=== PATIENT | male | born 1995 | race Caucasian/White ===

== ENCOUNTER 2024-05-10 08:27 | Inpatient (IN) | payer MEDICAID ==
[~2024-05-10] VITALS: Ht 172.7 cm; Wt 64.7 kg
[2024-05-10 08:55] LABS: COVID AG,FIA SOURCE NASAL SWAB
[2024-05-10 09:02] LABS: BASOPHILS % (AUTO) 0.3 % (0.0-2.0); EOSINOPHILS % (AUTO) 7.2 % (1.0-6.0); HEMATOCRIT 42.1 % (41-53); HEMOGLOBIN 13.9 g/dL (13.5-17.5); LYMPHOCYTES # (AUTO) 0.7 K/uL (1.0-4.8); LYMPHOCYTES % (AUTO) 14.4 % (22.0-44.0); MEAN CORPUSCULAR HGB CONC 32.9 G/dL (31.0-37.0); MEAN CORPUSCULAR VOLUME 91 fL (80-100); MONOCYTES # (AUTO) 0.3 K/uL (0.1-1.0); MONOCYTES % (AUTO) 6.3 % (2.0-9.0); NEUTROPHILS # (AUTO) 3.5 K/uL (1.8-7.7); NEUTROPHILS % (AUTO) 71.8 % (40.0-70.0); PLATELET COUNT (AUTO) 297 K/uL (150-450); RED BLOOD CELL COUNT(AUTO) 4.62 MIL/uL (4.50-5.90); RED CELL DISTRIBUTION WIDTH 13.6 % (11.5-14.5); WHITE BLOOD COUNT (AUTO) 4.8 K/uL (4.5-11.0)
[2024-05-10 09:03] LABS: CHLORIDE 106 mmol/L (98-107); CREATININE 0.92 mg/dL (0.60-1.30); GLOMERULAR FILTR. RATE CALC > 60 mL/min (>60); POTASSIUM 3.8 mmol/L (3.5-5.1); SODIUM SERUM 142 mmol/L (136-145)
[2024-05-10 09:10] LABS: ANION GAP 5 mmol/L (8-16); CARBON DIOXIDE 31 mmol/L (22-29); GLUCOSE,RANDOM 87 mg/dL (70-110); UREA NITROGEN, BLOOD 10 mg/dL (7-18)
[2024-05-10] MEDS: HALOPERIDOL 5 MG TABLET PO ONE (09:12)
[2024-05-10] MEDS: DiphenhydrAMINE HCL 25 MG CAPSULE PO ONE (09:12)
[2024-05-10 09:23] LABS: ALCOHOL, BLOOD (SERUM) < 3 mg/dL (0-10)
[2024-05-10 10:13] LABS: SARS-COV2 (COVID) ANTIGEN,FIA Negative (Negative)
[2024-05-10] MEDS ORDERED: ZOLPIDEM TARTRATE 10 MG TABLET PO PRN (10:30)
[2024-05-10] MEDS ORDERED: HALOPERIDOL 5 MG TABLET PO PRN (10:30)
[2024-05-10] MEDS: INFLUENZA VIRUS VACCINE TVS (6MO+) 2024-25/PF 45 MCG/0.5 ML SYRINGE IM. ONE (13:15)
[2024-05-10 13:17] VITALS: BP 111/73; PULSE 77; RESP 17; TEMP 97.8; O2SAT 98
[2024-05-10] MEDS ORDERED: ACETAMINOPHEN 325 MG TABLET PO PRN (20:00)
[2024-05-10] MEDS ORDERED: ONDANSETRON 4 MG TABLET PO PRN (20:00)
[2024-05-10] MEDS ORDERED: LOPERAMIDE HCL 2 MG CAPSULE PO PRN (20:00)
[2024-05-10] MEDS ORDERED: ALBUTEROL SULFATE HFA 90 MCG/PUFF 8 GM INHALER IH PRN (20:00)
[2024-05-10] MEDS ORDERED: DOCUSATE SODIUM 100 MG CAPSULE PO PRN (20:00)
[2024-05-10] MEDS ORDERED: OMEPRAZOLE 20 MG CAPSULE PO PRN (20:00)
[2024-05-10] MEDS ORDERED: IBUPROFEN 600 MG TABLET PO PRN (20:00)
[2024-05-10] MEDS ORDERED: BACITRACIN 28 GM OINTMENT TP PRN (20:00)
[2024-05-10] MEDS ORDERED: BENZOCAINE/MENTHOL [CEPACOL] LOZENGE PO PRN (20:00)
[2024-05-10] MEDS ORDERED: MAG HYDROX/ALUMINUM HYD/SIMETH ES 30 ML SUSPENSION UDCUP PO PRN (20:00)
[2024-05-10] MEDS ORDERED: CloNIDine HCL 0.1 MG TABLET PO PRN (20:00)
[2024-05-10] MEDS ORDERED: MAGNESIUM HYDROXIDE SUSPENSION 30 ML UDCUP PO PRN (20:00)
[2024-05-10] MEDS ORDERED: PETROLATUM,WHITE 28 GM JELLY TP PRN (20:00)
[2024-05-10] MEDS: TraZODone HCL 100 MG TABLET PO SCH (21:00)
[2024-05-10] MEDS: HALOPERIDOL 10 MG TABLET PO SCH (21:00)
[2024-05-10 22:10] VITALS: BP 99/63; RESP 17; TEMP 98; O2SAT 97
[2024-05-11 08:21] VITALS: BP 112/68; PULSE 85; RESP 17; O2SAT 99
[2024-05-11] MEDS: LORazepam 2 MG TABLET PO PRN (16:37)
[2024-05-11 21:21] VITALS: BP 94/64; PULSE 79; RESP 17; TEMP 97.1; O2SAT 97
[2024-05-12 10:26] VITALS: BP 97/62; PULSE 74; RESP 18; TEMP 97.9; O2SAT 98
[2024-05-12 21:09] VITALS: RESP 18; TEMP 97.6
[2024-05-13] MEDS: NICOTINE POLACRILEX 2 MG LOZENGE PO PRN (16:26)
[2024-05-13 22:25] VITALS: BP 138/92; PULSE 60; RESP 18; TEMP 97.5; O2SAT 97
[2024-05-14 22:52] VITALS: RESP 17
[2024-05-15 09:55] VITALS: RESP 18
[2024-05-15 21:29] VITALS: BP 122/74; PULSE 78; RESP 18; TEMP 98.7; O2SAT 99
[2024-05-16] MEDS ORDERED: HALO10TA21 PO (11:05)
[2024-05-16] MEDS ORDERED: TRAZ-257 PO (11:05)
== END 2024-05-16 14:10 | disposition home or self-care (01) | DRG 750 ==
LOC: EMS 08:28 → 3EI 12:24
PROVIDERS: ADMIT Psychiatry & Neurology Psychiatry; ATTEND Psychiatry & Neurology Psychiatry
DX: F20.9 Schizophrenia, unspecified (principal); R45.851 Suicidal ideations; F33.2 Major depressive disorder, recurrent severe without psychotic features; F19.10 Other psychoactive substance abuse, uncomplicated; Z20.822 Contact with and (suspected) exposure to COVID-19; F41.9 Anxiety disorder, unspecified; K59.00 Constipation, unspecified; G47.00 Insomnia, unspecified; Z87.891 Personal history of nicotine dependence
CPT/HCPCS: 80048; 85025; 99285; G0480

== ENCOUNTER 2024-12-10 08:21 | Inpatient (IN) | payer MEDICAID ==
[~2024-12-10] VITALS: Ht 180.3 cm; Wt 84.4 kg
[~2024-12-10 08:21] MED LIST: BENZ-247 PO; HALO10TA21 PO; TRAZ-257 PO
[2024-12-11 13:00] VITALS: BP 116/73; PULSE 89; RESP 18; TEMP 97.9; O2SAT 99
[2024-12-11] MEDS: BENZTROPINE MESYLATE 1 MG TABLET PO SCH (18:55)
[2024-12-11 20:18] VITALS: BP 118/70; PULSE 82; RESP 17; TEMP 98.3; O2SAT 98
[2024-12-12] MEDS ORDERED: ONDANSETRON 4 MG TABLET PO PRN (16:45)
[2024-12-12] MEDS ORDERED: GuaiFENesin/D-METHORPHAN [SUGAR-FREE] 200-20MG/10 ML SYRUP UDCUP PO PRN (16:45)
[2024-12-12] MEDS ORDERED: MAG HYDROX/ALUMINUM HYD/SIMETH ES 30 ML SUSPENSION UDCUP PO PRN (16:45)
[2024-12-12] MEDS ORDERED: MAGNESIUM HYDROXIDE SUSPENSION 30 ML UDCUP PO PRN (16:45)
[2024-12-12] MEDS ORDERED: LOPERAMIDE HCL 2 MG CAPSULE PO PRN (16:45)
[2024-12-12] MEDS ORDERED: ALBUTEROL SULFATE HFA 90 MCG/PUFF 8 GM INHALER IH PRN (16:45)
[2024-12-12] MEDS ORDERED: PETROLATUM,WHITE 28 GM JELLY TP PRN (16:45)
[2024-12-12] MEDS ORDERED: DOCUSATE SODIUM 100 MG CAPSULE PO PRN (16:45)
[2024-12-12] MEDS: NICOTINE 14 MG/24 HOUR PATCH TD PRN (18:33)
[2024-12-12 20:28] VITALS: BP 115/75; PULSE 80; RESP 17; TEMP 98; O2SAT 97
[2024-12-13 08:15] VITALS: RESP 18
[2024-12-13 09:37] LABS: APPEARANCE,URINE CLEAR (CLEAR); GLUCOSE, URINE (UA) NEGATIVE (NEGATIVE); LEUKOCYTE ESTERASE ,URINE NEGATIVE (NEGATIVE); NITRATE,URINE NEGATIVE (NEGATIVE); OCCULT BLOOD,URINE NEGATIVE (NEGATIVE); PH,URINE DRUG SCREEN 6.5 (5.0-8.0); SPECIFIC GRAVITIY, URINE 1.009 (1.003-1.030)
[2024-12-13 09:57] LABS: ALCOHOL, URINE DRUG SCREEN NEGATIVE (NEGATIVE); AMPHET/METH SCREEN,URINE NEGATIVE (NEGATIVE); BARBITURATE SCREEN, URINE NEGATIVE (NEGATIVE); CANNABINOID SCREEN,URINE NEGATIVE (NEGATIVE); COCAINE SCREEN,URINE NEGATIVE (NEGATIVE); METHADONE SCREEN, URINE NEGATIVE (NEGATIVE)
[2024-12-13 20:14] VITALS: BP 105/62; PULSE 78; RESP 17; TEMP 98.1; O2SAT 98
[2024-12-14 20:34] VITALS: RESP 18
[2024-12-14] MEDS: ACETAMINOPHEN 325 MG TABLET PO PRN (20:34)
[2024-12-14 21:34] VITALS: RESP 18
[2024-12-15 08:02] VITALS: BP 102/63; PULSE 70; RESP 18; TEMP 98.1
[2024-12-15 20:24] VITALS: BP 119/81; PULSE 90; RESP 18; TEMP 98; O2SAT 97
[2024-12-16 17:44] VITALS: RESP 18; O2SAT 97
[2024-12-16 18:44] VITALS: RESP 17; O2SAT 97
[2024-12-16 21:11] VITALS: BP 116/70; PULSE 90; RESP 18; TEMP 98.2; O2SAT 98
[2024-12-16 21:20] VITALS: RESP 18
[2024-12-16] MEDS: IBUPROFEN 400 MG TABLET PO PRN (21:23)
[2024-12-16 22:23] VITALS: RESP 18
[2024-12-17 20:14] VITALS: BP 127/83; PULSE 82; RESP 18; TEMP 97.7; O2SAT 98
[2024-12-18 20:12] VITALS: BP 126/77; PULSE 82; RESP 17; TEMP 98; O2SAT 98
[2024-12-18] MEDS: ZOLPIDEM TARTRATE 10 MG TABLET PO PRN (20:43)
[2024-12-19 08:55] VITALS: RESP 16
[2024-12-19 20:12] VITALS: BP 125/62; PULSE 87; RESP 17; TEMP 98.6; O2SAT 99
[2024-12-20 14:26] VITALS: BP 113/72; PULSE 139; RESP 18; TEMP 101.1; O2SAT 100
[2024-12-20 20:12] VITALS: RESP 17
[2024-12-21 02:19] VITALS: BP 113/53; PULSE 130; RESP 18; TEMP 102.2; O2SAT 96
[2024-12-21 03:14] VITALS: BP 89/39; PULSE 112; RESP 16; TEMP 102.7; O2SAT 95
== END 2024-12-21 15:00 | disposition short-term general hospital (02) | DRG 761 ==
LOC: B2S 12-11 12:36
PROVIDERS: ADMIT Psychiatry & Neurology Psychiatry; ATTEND Psychiatry & Neurology Psychiatry
PROC: GZHZZZZ Group Psychotherapy (ICD-10-PCS; principal; 2024-12-12)
PROC: GZ52ZZZ Individual Psychotherapy, Cognitive (ICD-10-PCS; 2024-12-12)
DX: F25.1 Schizoaffective disorder, depressive type (principal); Z59.00 Homelessness unspecified; F11.10 Opioid abuse, uncomplicated; F15.20 Other stimulant dependence, uncomplicated; F17.200 Nicotine dependence, unspecified, uncomplicated; G47.00 Insomnia, unspecified; R50.9 Fever, unspecified; R00.0 Tachycardia, unspecified; F10.10 Alcohol abuse, uncomplicated; Y90.9 Presence of alcohol in blood, level not specified; Z79.899 Other long term (current) drug therapy; Z91.51 Personal history of suicidal behavior
CPT/HCPCS: 80307; 81003; 84443; 87081